=== PATIENT | female | born 1950 | race Caucasian/White ===

== ENCOUNTER → 2022-09-12 | Outpatient (CLI) | payer MEDICARE, OTHER, SELFPAY | END | disposition home or self-care (01) | PROVIDERS: Visit Provider Nurse Practitioner Family | DX: J02.9 Acute pharyngitis, unspecified (principal) | CPT/HCPCS: 87070 ==

== ENCOUNTER → 2022-10-31 | Outpatient (CLI) | payer MEDICARE, OTHER, SELFPAY ==
[2022-10-31 12:24] LABS: Absolute Lymphocyte Count 1.63 X10^3/uL (0.83-4.51); Absolute Neutrophil Count 3.7 X10^3/uL (2.0-7.7); Basophil# 0.07 X10^3/uL; Basophil% 1.1 % (0-1); Eosinophil# 0.35 X10^3/uL; Eosinophils% 5.5 % (0-5); Hematocrit 42.1 % (37-47); Hemoglobin 13.5 g/dL (12.0-15.0); Lymphocyte # 1.63 X10^3/ul (0.83-4.51); Lymphocyte % 25.7 % (19-41); Mean Corp Hgb Conc 32.1 g/dL (32-36); Mean Corpuscular Hgb 28.8 pg (27.0-32.0); Mean Platelet Vol. 8.1 fl (6.2-12.0); Monocyte# 0.58 X10^3/uL; Monocyte% 9.1 % (0-10); NRBC Flagged by Analyzer 0 % (0-5); Neutrophil # 3.69 X10^3/uL (2.7-7.7); Neutrophil % 58.3 % (47-70); Platelet Count 453 K/mm3 (150-450); RBC Distribution Width CV 13.2 % (11.6-14.6); RBC Distribution Width SD 43.1 fl (35.1-43.9); Red Blood Count 4.68 M/mm3 (4.2-5.4); White Blood Count 6.3 K/mm3 (4.4-11.0)
[2022-10-31 12:47] LABS: Hemoglobin A1c 5.5 % (3.8-5.6)
[2022-10-31 12:56] LABS: ALB/GLOB Ratio 1.1 RATIO (0.9-2.4); AST(SGOT) 16 U/L (15-37); Alanine Aminotransfer ALT/SGPT 21 U/L (13-56); Albumin, Serum 3.6 g/dL (3.2-5.0); Alkaline Phosphatase 71 U/L (45-117); Anion Gap 9 (5-15); BUN 15 mg/dL (7-18); BUN/Creat Ratio 21.3 RATIO (10-20); Calcium,Total 9.3 mg/dL (8.5-10.1); Chloride 106 mmol/L (98-107); Cholesterol 223 mg/dL (200); EST Glomerular Filtration Rate 87 mL/min (>60); Est Glom Filt Rate - Afr Amer 106 mL/min (>60); Globulin 3.4 g/dL (2.2-4.2); Glucose 93 mg/dL (74-106); High Density Lipoprotein 50 mg/dL; Potassium 3.9 mmol/L (3.5-5.1); Sodium Level 138 mmol/L (136-145); Thyroid Stim Hormone (TSH) 1.58 uIU/mL (0.358-3.74); Triglycerides 125 mg/dL; Very Low Density Lipoprotein 25 mg/dL (5-40)
== END | disposition home or self-care (01) ==
LOC: MFPLAB 09:20
PROVIDERS: Visit Provider Family Medicine
DX: Z13.0 Encounter for screening for diseases of the blood and blood-forming organs and certain disorders involving the immune mechanism (principal); E03.9 Hypothyroidism, unspecified; Z13.1 Encounter for screening for diabetes mellitus; Z79.899 Other long term (current) drug therapy
CPT/HCPCS: 36415; 80053; 80061; 83036; 84443; 85025

== ENCOUNTER → 2023-08-12 | Outpatient (CLI) | payer MEDICARE, OTHER, SELFPAY ==
[2023-08-12 18:16] LABS: CRP < 2.90 mg/L (0.0-3.0)
[2023-08-14 15:08] LABS: Endomysial Antibody IgA Negative (Negative); Immunoglobulin A 133 mg/dL (87-352); t-Transglutaminase IgA <2 U/mL (0-3)
== END | disposition home or self-care (01) ==
LOC: MTLAB 14:47
PROVIDERS: PCP Family Medicine; Referring Provider Internal Medicine Gastroenterology; Visit Provider Internal Medicine Gastroenterology
DX: R19.7 Diarrhea, unspecified (principal)
CPT/HCPCS: 36415; 82784; 83516; 86140; 86255

== ENCOUNTER → 2023-11-14 | Outpatient (CLI) | payer MEDICARE, OTHER, SELFPAY ==
[2023-11-14 14:35] LABS: Absolute Neutrophil Count 4.8 X10^3/uL (2.0-7.7); Basophil# 0.07 X10^3/uL; Basophil% 0.9 % (0-1); Eosinophil# 0.34 X10^3/uL; Eosinophils% 4.5 % (0-5); Hematocrit 41.5 % (37-47); Hemoglobin 13.2 g/dL (12.0-15.0); Lymphocyte % 23.9 % (19-41); Mean Corp Hgb Conc 31.8 g/dL (32-36); Mean Corpuscular Hgb 28.1 pg (27.0-32.0); Mean Corpuscular Volume 88.5 fL (81-99); Mean Platelet Vol. 7.9 fl (6.2-12.0); Monocyte# 0.51 X10^3/uL; Monocyte% 6.8 % (0-10); NRBC Flagged by Analyzer 0 % (0-5); Neutrophil % 63.6 % (47-70); Platelet Count 417 K/mm3 (150-450); RBC Distribution Width CV 14.3 % (11.6-14.6); RBC Distribution Width SD 46.2 fl (35.1-43.9); Red Blood Count 4.69 M/mm3 (4.2-5.4); White Blood Count 7.5 K/mm3 (4.4-11.0)
[2023-11-14 15:19] LABS: CRP < 2.90 mg/L (0.0-3.0)
[2023-11-14 16:24] LABS: Erythrocyte Sedimentation Rate 15 mm/hr (0-30)
== END | disposition home or self-care (01) ==
LOC: LAB 14:02
PROVIDERS: PCP Family Medicine; Referring Provider Specialist; Visit Provider Specialist
DX: Z96.643 Presence of artificial hip joint, bilateral (principal); T84.84XA Pain due to internal orthopedic prosthetic devices, implants and grafts, initial encounter
CPT/HCPCS: 36415; 85025; 85652; 86140

== ENCOUNTER → 2024-02-06 | Outpatient (CLI) | payer MEDICARE, OTHER, SELFPAY ==
--- NOTE | 2024-02-06 11:03 | VDLE_ITS ---
Reason For Study: LLE Swelling RIGHT LEFT CFV is compressible, spontaneous, phasic, GSV is normal. competent and demonstrates normal CFV is compressible, spontaneous, phasic, augmentation. competent, and demonstrates normal Procedure augmentation. This is a venous duplex using B-mode, color FV is compressible, spontaneous, phasic, flow and spectral Doppler. competent and demonstrates normal Exam performed in department. augmentation. The exam was diagnostic. POP V is compressible, spontaneous, phasic, A preliminary report was called and/or faxed competent and demonstrates normal to Ben Pruett / [facility]. augmentation. T/P Trunk is compressible. PTV is compressible. LT PerV is compressible. VL/Venous Duplex US, Unilateral Interpretation Summary Deep veins of the left lower extremity are patent and compressible segmentally. There is no evidence of left lower extremity deep vein thrombosis. The left great saphenous vein meryl ears patent and compressible segmentally. Ordering Physician: Ben Pruett Referring Physician: Kayla Beltre Performed By: Larry Serrano RVT
== END | disposition home or self-care (01) ==
LOC: CVS 11:00
PROVIDERS: PCP Family Medicine; Referring Provider Physician Assistant Surgical; Visit Provider Physician Assistant Surgical
DX: R22.42 Localized swelling, mass and lump, left lower limb (principal)
CPT/HCPCS: 93971

== ENCOUNTER 2024-03-09 12:30 | Outpatient (RCR) | payer MEDICARE, OTHER, SELFPAY ==
--- NOTE | 2024-01-29 15:52 | HP.PTEVAL_ITS ---
Patient's Visit Information Visit Information Visit Information: ANDREW ACEVES is a 73 year old F referred to Physical Therapy by Lazarus Pruett PA-C with a diagnosis of L MIRA revision, posterior/lateral approach. Date of Evaluation: 01/27/24 Physical Therapist: Stewart Hylton DPT Visit Plan Frequency: 3x /Week Duration: 6 Weeks Plan: Start with functional mobility, HS stretching, hip mobility. Ice for pain control. Progress to cane then no AD as tolerated. No flexion at 90deg, no ER and bending/twisting Subjective Subjective: Pt. is here today for her initial evaluation with diagnosis of L revision of a MIRA. Pt. reports DOS: 01/21/24, posterior lateral approach. Pt. reports understanding of her precautions. Pt. arrives walking with FWW with good tolerance. She has a history of both hips being replaced ~25 years previously. She had an underlying hip dysplasia and advanced arthritis at that time. She reports her incision is doing fine. She reports overall doing well. She does live by her self, basement stairs. Her son has been coming in and helping out. Pt. reports being compliant with her HEP without issues. Pt. reports that her stiches are rubbing a little bit, but not too bad. Pt. reports she has been walking at home consistently. Pt. is hopeful to increase her strength and ROM in order to get back to all household and recreational activities without limitations. Pain L hip: Pain Intensity (Out of 10): Unrated Pain Intensity Range: 2 and 7 Comment: Stitches site really high Objective Objective: POSTURE: Pt. is able to stand with FWW with good posture, but does use AD to off load LLE. Pt. has slight increase wt. shift to R side, more so without AD. PALPATION: Pt. has marked bruising around incision. Sutures in place, no signs of infection noted. Pt. has some tenderness with palpation of R IT band and hip flexor. NEURO: normal sensation throughout BLEs. Pt. has normal DTR of BLEs. Pt. is able to rise on toes without issues. ROM: PROM: hip flexion: 75deg tigthness, abd 30deg tightness, extension 0deg, ER/IR not tested. Pt. has 50deg of HS length with SLR with assistance. MMT: Pt. has good quad and glute set. Pt. unable to complete SLR with LLE. GAIT: Pt. has good gait pattern with FWW. Pt. does have slight reduced hip extension on L side and reduced hip flexion as well. Balance/Special Test Scores TUG Test Time Seconds: 27.3 30 Second Chair Rise Test Seconds: 8 WOMAC Total Score: 72 WOMAC Percentatge: 25.0000 Goals Goal 1:: LTG: Pt. to be I with HEP. Goal Time Frame: 4-6 Weeks Goal 2:: STG: Pt. to sleep throughout the night without increase in L hip pain. Goal Time Frame: 2-4 Weeks Goal 3:: LTG: pt. to have decreased LLE edema in LLE symmetrical to R in order to promote improved healing environment. Goal Time Frame: 2-4 Weeks Goal 4:: LTG: pt. to have TUG with time less than 10 seconds. Goal Time Frame: 4-6 Weeks Goal 5:: LTG: Pt. to negotiate steps with 1 HR with reciprocal pattern without increase in symptoms. Goal Time Frame: 4-6 Weeks Goal 6:: LTG: Pt. to have equal strength between BLEs allowing for increased functional mobility. Goal Time Frame: 4-6 Weeks Rehabilitation Potential Physical Therapy Diagnosis: Pt. has signs and symptoms consistent with L MIRA revision, posterior/lateral approach, DOS: 01/21/24. Pt. has marked hypomobility, weakness and difficulty with gait. Pt. would benefit from PT to address the above limitations progressing back to all household and recreational activities without limitations. Rehabilitation Potential: Excellent Anticipated Interventions Patient/Client Instruction: Educate patient on: Condition, Plan of Care, Risk Factors and Benefits of Fitness Program For the Purpose of:: To improve health and function, To foster healthy habits, To improve decision making, To facilitate caregiver knowledge, To improve self management, To prevent re-injury and To improve ability to perform tasks related to life management Therapeutic Exercise to Include: Strength training, Power training, Endurance training, Balance training, Flexibilty training, Gait and locomotor training, Passive ROM, Active ROM and Dynamic Lumbar Stabilization For the Purpose of:: To decrease pain, To decrease swelling/inflammation, To increase ROM, To improve nutrient delivery to tissue and To increase oxygenation perfusion Cryotherapy (ice pack, ice massage): Yes For the Purpose of:: To decrease pain, To decrease swelling/inflammation and To increase ROM Text: Thank you for the opportunity to evaluate your patient. For Medicare and Medicare HMO plans, please review the plan of care and approve it. It will need to be FAXED BACK to us at [phone] for Medicare purposes. For Medicare only, by signing this I certify the plan of care. Please let me know if there are questions or concerns regarding this plan of ca re. Physician Signature: Date:
== END 2024-03-09 19:00 | disposition home or self-care (01) ==
LOC: PT 12:30
PROVIDERS: Referring Provider Physician Assistant Surgical; Visit Provider Physician Assistant Surgical
DX: T84.061D Wear of articular bearing surface of internal prosthetic left hip joint, subsequent encounter (principal); Z47.1 Aftercare following joint replacement surgery; Z96.642 Presence of left artificial hip joint
CPT/HCPCS: 97110; 97116; 97140; 97161

== ENCOUNTER → 2024-07-27 | Outpatient (CLI) | payer MEDICARE, OTHER, SELFPAY ==
[2024-07-27 18:02] LABS: Vitamin D,25 Hydroxy 36.9 ng/mL
[2024-07-27 18:19] LABS: AST(SGOT) 15 U/L (15-37); Alanine Aminotransfer ALT/SGPT 21 U/L (13-56); Albumin, Serum 3.9 g/dL (3.2-5.0); Alkaline Phosphatase 68 U/L (45-117); Anion Gap 8 (5-15); BUN 16 mg/dL (7-18); BUN/Creat Ratio 22.2 RATIO (10-20); Calcium,Total 9.6 mg/dL (8.5-10.1); Chloride 105 mmol/L (98-107); Creatinine, Serum 0.72 mg/dL (0.55-1.02); EST Glomerular Filtration Rate 85 mL/min (>60); Est Glom Filt Rate - Afr Amer 103 mL/min (>60); Globulin 3.8 g/dL (2.2-4.2); Glucose 83 mg/dL (74-106); Protein, Total 7.7 g/dL (6.4-8.2); Sodium Level 139 mmol/L (136-145)
== END | disposition home or self-care (01) ==
LOC: MFPLAB 14:57
PROVIDERS: PCP Family Medicine; Referring Provider Family Medicine; Visit Provider Family Medicine
DX: E03.9 Hypothyroidism, unspecified (principal); E55.9 Vitamin D deficiency, unspecified; Z13.1 Encounter for screening for diabetes mellitus
CPT/HCPCS: 36415; 80053; 82306; 84443

== ENCOUNTER 2024-10-30 12:03 | Emergency (ER) | payer MEDICARE, OTHER, SELFPAY ==
[2024-10-30 12:04] VITALS: BP 147/72; PULSE 90; RESP 16; TEMP 36.6; O2SAT 95; BMI 28.3
--- NOTE | 2024-10-30 12:26 | CT_ITS ---
PROCEDURE: BRAIN/HEAD WITHOUT CONTRAST (CTBR), 10/30/2024 REASON FOR EXAM: HEAD TRAUMA COMPARISON: None TECHNIQUE: CT head was performed without IV contrast. Multiplanar reformats were generated. RADIATION DOSE SUMMARY: CTDlvol: 44.99 mGy DLP: 812.98 mGycm One or more dose reduction techniques were used (e.g., Automated exposure control, adjustment of the mA and/or kV according to patient size, use of iterative reconstruction technique). FINDINGS: Cerebrum: No visible acute hemorrhage, definite acute territorial infarct, or visible mass. Mineralization of the bilateral basal ganglia may be a normal variant. Cerebellum/brainstem: Unremarkable. Note slight limitation due to beam hardening artifact. Ventricles/extra-axial spaces: Unremarkable. Paranasal sinuses/mastoid air cells: Refer to separately dictated CT sinuses Scalp/calvarium: Nonspecific 15 x 16 mm LEFT occipital slightly lucent lesion. Other: Partially empty sella, can be a normal variant or may be seen in the setting of idiopathic intracranial hypertension amongst other etiologies.. Intracranial atherosclerosis. Bilateral cataract surgery. CT/Brain/Head without Contrast IMPRESSION: 1. No visible acute intracranial findings. 2. 16 mm nonspecific LEFT occipital bone lesion. Correlate for history of know n malignancy and compare with any available outside imaging to assess stability. If unavailable, recommend clinical follow -up as indicated. Bone scan could be considered. 3. Face/sinuses better evaluated on separately dictated CT. Refer to that repo rt for additional description. 4. Additional description as above. Reading Location: [id number]
--- NOTE | 2024-10-30 12:37 | CT_ITS ---
PROCEDURE: SINUS/FACIAL BONE (CTSI), 10/30/2024 REASON FOR EXAM: TRAUMA TECHNIQUE: CT sinuses was performed without IV contrast. Multiplanar reformats were generated. RADIATION DOSE SUMMARY: CTDlvol: 29.38 mGy DLP: 613.57 mGycm One or more dose reduction techniques were used (e.g., Automated exposure control, adjustment of the mA and/or kV according to patient size, use of iterative reconstruction technique). COMPARISON: None FINDINGS: Demineralization without fracture or acute malalignment identified. Operative changes: None. Paranasal sinuses: Clear. Outflow tracts: Patent. Anatomic variants: S shaped nasal septal deviation, 5 mm to the RIGHT superiorly and 4 mm to the LEFT inferiorly. Bony spur on the LEFT with mass-effect on the LEFT inferior turbinate. Trace supraorbital pneumatization bilaterally. Pneumatization of the RIGHT anterior clinoid process. Other: Intracranial compartment better evaluated on dedicated CT head. Impacted RIGHT mandibular molar. Mild degenerative changes of the TMJs, [id number]. Cervical spondylosis. Suspect LEFT periorbital/supraorbital contusion. Bilateral cataract surgery. CT/Sinus/Facial Bone IMPRESSION: 1. Demineralization without fracture or acute malalignment identified. 2. Suspect LEFT periorbital/supraorbital contusion. 3. Additional description as above. Reading Location: [facility]
--- NOTE | 2024-10-30 12:39 | ED.VIS.FALL ---
HPI HPI - Fall History of Present Illness Chief Complaint: Fall Informant: patient Occured/Mechanism Occurred: Yesterday Mechanism/Context: Yes same level fall and Yes trip Usually ambulates: Without assistance Pain/Injury Pain Location: head and face Quality of Pain: Dull and Aching Current Severity: Mild Maximum Severity: Mild Associated Symptoms Associated Symptoms: Negative for Parasthesias, Weakness, Loss of function, Inability to ambulate, Loss of consciousness or Amnesia Narrative Narrative: 73-year-old female past medical history of hypothyroidism. Was carrying groceries in her garage yesterday she tripped and hit her left forehead eyebrow area on the garage floor. Says she was dazed. No LOC. She is on no blood thinners. Not even aspirin. Denies any neck pain or other complaints. Said today she has had intermittent headache with some nausea. Bruising and swelling about her left eyebrow area. Prior similar symptoms: No Recent Illness/Hospitalization: No PFSH PFSH Medical History Depression Hypothyroidism Home Medications ?Medication ?Instructions ?Recorded ?Last Taken ?Type Lactobacillus acidophilus 10 10,000 mmu cells PO DAILY 10/30/24 10/30/24 History billion cell capsule (NewFlora) bupropion HCl 75 mg tablet 75 mg PO DAILY 10/30/24 10/30/24 History levothyroxine 100 mcg tablet 100 mcg PO DAILY 10/30/24 10/30/24 History loratadine 10 mg tablet 10 mg PO Q24H 10/30/24 10/30/24 History (Allerclear) magnesium 200 mg tablet 400 mg PO QHS 10/30/24 10/29/24 History turmeric 400 mg capsule 400 mg PO QHS 10/30/24 10/29/24 History Allergy/AdvReac Type Severity Reaction Status Date / Time meperidine (From Demerol) Allergy Vomiting Verified 10/30/24 12:07 Sulfa (Sulfonamide Allergy Vomiting Verified 10/30/24 12:07 Antibiotics) Social History Smoking Status: Former smoker ROS ROS ED ROS Narrative Head trauma. Mild headache. Nausea. Constitutional Constitutional ED: Denies chills or fever(s) Eyes Eyes: Denies blurry vision ENT ENT ED: Denies ear pain Respiratory/Chest Respiratory/Chest: Denies cough or dyspnea Gastrointestinal Gastrointestinal: Reports nausea; Denies abdominal pain, diarrhea or vomiting Genitourinary Genitourinary ED: Denies dysuria or hematuria Musculoskeletal Musculoskeletal: Denies arthralgias Integumentary Denies abscess Neurologic Neurologic: Reports headache(s) Psychiatric Psychiatric: Denies anxiety Endocrine Endocrinology: Denies polydipsia Hematologic/Lymphatic Hematologic/Lymphatic: Denies easy bleeding or easy bruising Allergic/Immunologic Allergic/Immunologic ED: Denies mouth swelling, tongue swelling or urticaria EXAM Physical Exam Narrative Exam Narrative: 73-year-old female sitting upright in bed. Vital signs stable afebrile. No distress. HEENT exam pupils round reactive light. She motions are intact. No signs of entrapment. She has a bruise on her left eyebrow tenderness and some swelling about the left eye. She can open and close either eye without any difficulty. Tenderness to the eyebrow area. No dental injury. No scalp trauma. Neck nontender. Normal range of motion. Back nontender. Lungs clear. Heart regular rhythm. No murmur. Moving all 4 extremities. Normal cloth roll winder strength. Normal dorsi plantarflexion. Normal range of motion. No deformity. No significant tenderness. Neurologically she is awake and alert. Answer questions following commands. GCS 15. She knows month, day and year. She knows the president. She knows where she is at. Const Vital Signs: 10/30/24 12:04 10/30/24 12:12 Temperature 97.9 F Temperature Source Oral Pulse Rate 90 Respiratory Rate 16 Respiratory Effort Normal Non-Labored Respiratory Depth Normal Respiratory Pattern Normal Blood Pressure 147/72 H Blood Pressure Mean 97 Pulse Ox 95 Oxygen Delivery Method Room Air Room Air Positive well nourished and well developed; Negative for obese, cachectic, contractures or unkempt General Appearance ED: well developed; Negative for unkempt, cachectic or contractures Nutritional Appearance: Negative for cachectic or obese HEENT Reports normocephalic HEENT Narrative: Left periorbital swelling and bruising. Tenderness. Left eyebrow small hematoma. No laceration. trauma, contusion and tenderness; Negative for atraumatic Eyes PERRL and EOMs intact bilaterally Neck full ROM, no lymphadenopathy and supple Chest Wall inspection of chest normal and palpation of chest normal Resp normal respiratory effort, no retractions and clear to auscultation bilaterally Cardio regular rate, regular rhythm, S1 normal heart sound, S2 normal heart sound and no murmurs Rate: Negative for bradycardia or tachycardic Rhythm: Negative for abnormal rhythm Bruits: Negative for other GI non-tender, non-distended and no masses Auscultation: normoactive bowel sounds Palpation: soft; Negative for guarding or rebound tenderness present Back/Spine no CVA tenderness General Back: Negative for CVA tenderness Cervical Spine: Negative for cervical spine tenderness Lumbar Spine / Lower Back: Negative for lumbar spinal tenderness Neuro oriented x3, CN's II-XII intact bilaterally, moves all extremities and no focal motor deficits Oralia Coma Scale: document GCS findings Spontaneous Obeys Commands Oriented 15 Sensorium / Orientation: alert, oriented to person, oriented to place and oriented to time; Negative for orientation impaired, confused, lethargic or stuporous Motor Exam: strength 5/5 throughout Psych mental status grossly normal and thought process normal Appearance: Negative for unkempt Attitude: No agitated Mood & Affect: Negative for depressed, anxious or tearful Skin Skin Narrative: Left eyebrow contusion mild swelling. No laceration. Rashes: no rashes MDM MDM MDM Narrative Medical decision making narrative: 73-year-old female fell yesterday hit her left eyebrow complaining of intermittent headache, and nausea. No other significant injuries. CAT scans going to be obtained. Repeat exam around 2:58 PM patient doing well. Unchanged. I went over CAT scan results with her. She be discharged home. Closed head injury. Mild concussion. Tylenol for pain. Ice to the contusion. Patient is comfortable with the plan. History & Record Review Discussion w/independent historian: Patient Additional record(s) reviewed:: Prior inpatient record, Prior outpatient record, Prior ED visit and Prior labs Radiography Diagnostic Testing: Clinical Impression(s) from Imaging Studies Brain CT 10/30/24 12:26 IMPRESSION: 1. No visible acute intracranial findings. 2. 16 mm nonspecific LEFT occipital bone lesion. Correlate for history of known malignancy and compare with any available outside imaging to assess stability. If unavailable, recommend clinical follow-up as indicated. Bone scan could be considered. 3. Face/sinuses better evaluated on separately dictated CT. Refer to that report for additional description. 4. Additional description as above. Reading Location: [facility] Facial/Sinus 10/30/24 12:37 IMPRESSION: 1. Demineralization without fracture or acute malalignment identified. 2. Suspect LEFT periorbital/supraorbital contusion. 3. Additional description as above. Reading Location: [facility] Discharge Plan Triage Chief Complaint: Fall ED Provider: Sung Knutson Dx/Rx/DC Orders Clinical Impression: Fall, Closed head injury, Concussion, Contusion of face Instructions: ED Head Injury (Adult) Prescriptions: No Action levothyroxine 100 mcg tablet 100 mcg PO DAILY bupropion HCl 75 mg tablet 75 mg PO DAILY magnesium 200 mg tablet 400 mg PO QHS turmeric 400 mg capsule 400 mg PO QHS NewFlora 10 billion cell capsule 10,000 mmu cells PO DAILY loratadine [Allerclear] 10 mg tablet 10 mg PO Q24H Primary Care Provider: Kayla Beltre Referrals: Kayla Beltre MD [Primary Care Provider] - 1 Week if not improving Activity Restrictions/Additional Instructions: Ice to your face. Tylenol for pain and limited ibuprofen for swelling and pain. You have a mild concussion. This should progressively improve over the next 1 to 2 weeks. You may have some nausea. May get some headaches. May have increased trouble sleeping. This should progressively improve if not follow-up with your doctor. If you would develop severe headache and intractable vomiting return to the emergency department. But your CAT scan today looked good. Print Language: Greek Disposition Disposition: Home, Self Care
== END 2024-10-30 15:13 | disposition home or self-care (01) ==
PROVIDERS: Emergency Provider Emergency Medicine; PCP Family Medicine; Visit Provider Emergency Medicine
DX: S06.0X0A Concussion without loss of consciousness, initial encounter (principal); F32.A Depression, unspecified; E03.9 Hypothyroidism, unspecified; Z87.891 Personal history of nicotine dependence; Z79.899 Other long term (current) drug therapy; W18.30XA Fall on same level, unspecified, initial encounter
CPT/HCPCS: 70450; 70486; 99282

== ENCOUNTER → 2025-02-18 | Outpatient (CLI) | payer MEDICARE, OTHER, SELFPAY | END | disposition home or self-care (01) | LOC: MFPLAB 16:34 | PROVIDERS: PCP Family Medicine; Referring Provider Family Medicine; Visit Provider Family Medicine | DX: E78.5 Hyperlipidemia, unspecified (principal); E55.9 Vitamin D deficiency, unspecified; E03.9 Hypothyroidism, unspecified | CPT/HCPCS: 36415; 84443 ==